=== PATIENT | male | born 1960 | race African-American/Black ===

== ENCOUNTER 2017-03-04 09:39 | Emergency (ER) | payer SELFPAY ==
--- NOTE | 2017-03-04 10:50 | ED Physician Documentation ---
Lower Extremity Problem - HISTORIAN Historian: patient - HPI Stated Complaint: RLE pain Chief Complaint: Lower Extremity Problem Additional Information: exercise painrt leg walks few hundred feet rt leg belowknee pain - rest prod relief-intermittent claudication Location of Injury: R leg Timing: worse (prog worse past 2-3 months--smokes 1/3 ppd), gone now Duration: intermittent episodes Recent Injury: No Severity: mild, moderate Quality: pain, tenderness (from knee down only). denies: swelling Exacerbated By: walking Relieved By: rest Associated Symptoms: denies: shortness of breath - ROS CONST: no problems MS/SKIN/LYMPH: calf pain CVS/RESP: denies: chest pain, shortness of breath NERUO/PSYCH: denies: difficulty walking (just pain) - PAST HX Past History: none PE Risk Factors: none Surgeries/Procedures: none Allergies/Adverse Reactions: Allergies Allergy/AdvReac Type Severity Reaction Status Date / Time No Known Allergies Allergy Verified 03/04/17 09:57 Home Medications: Ambulatory Orders Medication Instructions Recorded Lisinopril [Prinivil] 20 mg PO QD #30 tablet 03/04/17 - SOCIAL HX Smoking History: less than 1 pack/day Alcohol Use: rarely Drug Use: none - FAMILY HX Family History: no significant history - VITAL SIGNS Vital Signs: Vital Signs Temp Pulse Resp BP Pulse Ox 98.2 F 71 16 169/97 97 03/04/17 09:50 03/04/17 09:50 03/04/17 09:50 03/04/17 09:50 03/04/17 09:50 - REVIEWED ASSESSMENTS Nursing Assessment Reviewed: Yes Vitals Reviewed: Yes ED Results Lab/Radiology - Orders Orders: ED Orders Category Date Time Status Chem Sticks Med 03/04/17 10:31 Discontinued 1 each MC NOW ONE Lower Extremity Problem - EXAM General Appearance: mild distress Legs: right: non-tender (below knee only-diminished pulsation) Neuro/Tendon: normal motor functions, normal tendon functions EENT: no signs of dehydration RESPIRATORY: no resp distress, chest non-tender, breath sounds normal CVS: reg rate & rhythm, heart sounds normal JOINT: joints nml VASCULAR: decreased/absent pulse. No: no vascular compromise, pulses full/equal , Nolan's sign NEURO/PSYCH: oriented X3, motor nml, sensation nml, mood/affect nml SKIN: warm/dry, normal color. No: cyanosis, diaphoresis BACK: normal inspection Discharge Clincal Impression: PV-INTERMITTENTCLAUDICATION RT BELOW KNE, HTN (hypertension), NICOTINE ABUSE Referrals: Primary Doctor,No [Primary Care Provider] - 2 Days Comments: WILL GIVE ASA 325 DAILY ANDLISINOPRIS 10 DAILY DC CIGS-EST W/PCP Condition: Fair Disposition: 01 HOME, SELF-CARE Decision to Admit: NO Decision Time: 10:58
[2017-03-04 10:54] VITALS: BP 154/96
== END 2017-03-04 10:52 | disposition home or self-care (01) ==
LOC: ED 09:39
DX: M25.561 Pain in right knee (principal); I10 Essential (primary) hypertension
CPT/HCPCS: 99283

== ENCOUNTER 2018-07-06 11:33 | Emergency (ER) | payer SELFPAY ==
--- NOTE | 2018-07-06 11:37 | ED Physician Documentation ---
General Adult - HISTORIAN Historian: patient - HPI Stated Complaint: paralysis of lower legs starting at 1030 Chief Complaint: General Adult Onset: minutes (50) Timing: still present Severity: mild Further Comments: yes (per family he was found laying on floor by cough (where he sleep) in urine. He was then reported to have told the family he cannot move his legs. He states he can feel his legs but he cannot move the legs. Per friend he did fall on ice two weeks ago on left side but has "been normal since" He did have a CVA two years ago. He denies any other complaints. Admits to alcohol drinking at times he did drink last night but reports only 4 beers. He then did have another episode of urinary incontinence on the way to the ER) Last known Well Code/Unknown Code: Unknown - ROS CONST: no problems CVS/RESP: denies: shortness of breath - PAST HX Past History: hypertension (not currently taking meds ) Surgeries/Procedures: none Immunizations: UTD Allergies/Adverse Reactions: Allergies Allergy/AdvReac Type Severity Reaction Status Date / Time No Known Allergies Allergy Verified 03/04/17 09:57 - SOCIAL HX Smoking History: non-smoker Alcohol Use: occasionally Drug Use: none - FAMILY HX Family History: No - VITAL SIGNS Vital Signs: Vital Signs Temp Pulse Resp BP Pulse Ox 154/96 03/04/17 10:52 - REVIEWED ASSESSMENTS Nursing Assessment Reviewed: Yes Vitals Reviewed: Yes ED Results Lab/Radiology - Radiology Radiology Impressions: Head CT without contrast Clinical history: Sudden lower leg numbness. History of cerebrovascular accident. Technique: CT examination of the brain is performed in contiguous axial slices with sagittal and coronal reconstructions. Findings: The 4th ventricle lies in a normal midline position. The ventricles and sulci are prominent for the patient's age consistent with atrophy. There are extensive small vessel ischemic changes in the periventricular regions. There is no hypodense or hyperdense mass or intracranial hemorrhage. Intracranial atherosclerosis is evident. Visualized paranasal sinuses and the mastoid air cells are clear. Impression: 1. Premature atrophy. 2. Chronic small vessel ischemic changes. 3. Intracranial atherosclerosis. Electronically signed on Jul 06, 2018 12:12:52 PM CDT by: Yuval Saxena CT of the lumbar spine Clinical history: Sudden lower leg numbness. History of cerebrovascular accident. Technique: CT of the lumbar spine is performed in contiguous axial slices with sagittal and coronal reconstructions. Findings: The alignment of the vertebrae is anatomic. There is a fracture of the L1 vertebra involving the anterolateral aspect of the vertebral body on the left extending from the mid vertebral body to the inferior endplate. Posterior elements are intact. There are prominent anterior osteophytes at multiple levels. Sacroiliac joints are symmetric. Degenerative facet changes are seen in the mid and lower lumbar vertebrae. On the axial images at L2-3 there are degenerative facet changes. The neural foramina are patent. At L3-4 there again degenerative facet changes with minimal osteophyte formation. There is slight narrowing the neural foramina but epidural fat still seen within the foramina. The diameter of the canal is within normal limits. At L4-5 there are more severe degenerative facet changes worse on the right with narrowing the right neural foramen. AP diameter of the canal is within normal limits. At L5-S1 there again degenerative facet changes worse on the right with mild diffuse discogenic bulge 2-3 mm. This narrows both neural foramina although worse on the right. Impression: 1. Multilevel spondylosis as described. 2. Fracture of the inferior aspect of the L1 vertebral body on the right side anteriorly. This does not extend into the posterior elements or affect the spinal canal. Electronically signed on Jul 06, 2018 12:18:56 PM CDT by: Yuval Saxena General Adult Physical Exam - PHYSICAL EXAM GENERAL APPEARANCE: no distress EENT: eye inspection normal, no signs of dehydration NECK: normal inspection RESPIRATORY: no resp distress, chest non-tender, breath sounds normal CVS: reg rate & rhythm, heart sounds normal ABDOMEN: soft, normal bowel sounds, no distension BACK: normal inspection SKIN: warm/dry EXTREMITIES: non-tender, other (he states he has feeling with entire exam of legs but he cannot move any part of legs or feet ) NEURO: oriented X3, CN's nml as tested, motor nml, sensation nml, mood/affect nml, cognition normal (he has a mild left lip droop family states this is normal for him ), other (upper body strength normal ) Discharge Clincal Impression: Paralysis Referrals: Primary Doctor,No [Primary Care Provider] - 2 Days Comments: Transfer accepted to [facility] Dr [place]ina in ER Condition: Stable Disposition: 02 XFER SHT-TRM HOSP Decision to Admit: NO Date of Decison to Admit: 07/06/18 Decision Time: 12:35
[2018-07-06 11:56] LABS: MEAN CORPUSCULAR HEMOGLOBIN 31.1 pg (28.0-34.0)
[2018-07-06 11:57] LABS: BASOPHILS % 0.5 (0.0-1.5); EOSINOPHILS % 1.2 % (0.0-6.8); MONOCYTES % 3.7 % (0.0-11.0); NEUTROPHILS # 8.6 # k/uL (1.4-7.7)
[2018-07-06 12:03] LABS: eGFR (Non-African) > 60
--- NOTE | 2018-07-06 12:18 | Diagnostic Imaging Report ---
JONNA CARRIZALES [facility] [address] [facility] [address] [place], [place]. [address] Report Submission Date: Jul 06, 2018 12:12:52 PM CDT Patient Study Name: KAITLIN PETTIT Date: Jul 06, 2018 11:42:40 AM CDT Modality Type: CT Gender: M Description: CT BRAIN W/O CONTRAST : 58 Institution: [facility] Physician: JONNA CARRIZALES Head CT without contrast Clinical history: Sudden lower leg numbness. History of cerebrovascular accident. Technique: CT examination of the brain is performed in contiguous axial slices with sagittal and coronal reconstructions. Findings: The 4th ventricle lies in a normal midline position. The ventricles and sulci are prominent for the patient's age consistent with atrophy. There are extensive small vessel ischemic changes in the periventricular regions. There is no hypodense or hyperdense mass or intracranial hemorrhage. Intracranial atherosclerosis is evident. Visualized paranasal sinuses and the mastoid air cells are clear. Impression: 1. Premature atrophy. 2. Chronic small vessel ischemic changes. 3. Intracranial atherosclerosis. Electronically signed on Jul 06, 2018 12:12:52 PM CDT by: Yuval ORTIZ
--- NOTE | 2018-07-06 12:22 | Diagnostic Imaging Report ---
JONNA CARRIZALES [facility] [address] [facility] [address] [place], [place]. [address] Report Submission Date: Jul 06, 2018 12:18:56 PM CDT Patient Study Name: KAITLIN PETTIT Date: Jul 06, 2018 11:44:56 AM CDT Modality Type: CT Gender: M Description: CT L-SPINE W/O CONTRAS : 58 Institution: [facility] Physician: JONNA CARRIZALES CT of the lumbar spine Clinical history: Sudden lower leg numbness. History of cerebrovascular accident. Technique: CT of the lumbar spine is performed in contiguous axial slices with sagittal and coronal reconstructions. Findings: The alignment of the vertebrae is anatomic. There is a fracture of the L1 vertebra involving the anterolateral aspect of the vertebral body on the left extending from the mid vertebral body to the inferior endplate. Posterior elements are intact. There are prominent anterior osteophytes at multiple levels. Sacroiliac joints are symmetric. Degenerative facet changes are seen in the mid and lower lumbar vertebrae. On the axial images at L2-3 there are degenerative facet changes. The neural foramina are patent. At L3-4 there again degenerative facet changes with minimal osteophyte formation. There is slight narrowing the neural foramina but epidural fat still seen within the foramina. The diameter of the canal is within normal limits. At L4-5 there are more severe degenerative facet changes worse on the right with narrowing the right neural foramen. AP diameter of the canal is within normal limits. At L5-S1 there again degenerative facet changes worse on the right with mild diffuse discogenic bulge 2-3 mm. This narrows both neural foramina although worse on the right. Impression: 1. Multilevel spondylosis as described. 2. Fracture of the inferior aspect of the L1 vertebral body on the right side anteriorly. This does not extend into the posterior elements or affect the spinal canal. Electronically signed on Jul 06, 2018 12:18:56 PM CDT by: Yuval ORTIZ
[2018-07-06 13:12] VITALS: BP 155/92
== END 2018-07-06 13:00 | disposition short-term general hospital (02) ==
LOC: ED 11:33
DX: G82.20 Paraplegia, unspecified (principal); S32.018A Other fracture of first lumbar vertebra, initial encounter for closed fracture; W00.9XXA Unspecified fall due to ice and snow, initial encounter; Y93.9 Activity, unspecified; Y92.9 Unspecified place or not applicable
CPT/HCPCS: 36415; 70450; 72131; 80053; 80320; 85025; 85610; 99285; G0480; S1016

== ENCOUNTER 2018-07-17 17:59 | Emergency (ER) | payer SELFPAY ==
--- NOTE | 2018-07-17 18:28 | ED Physician Documentation ---
General Adult - HISTORIAN Historian: patient, friend - HPI Stated Complaint: catheter removal Chief Complaint: General Adult Further Comments: yes (58 year old male patient presents requesting boss catheter be removed. Catheter was place at [facility] last week. called [facility] today and was told to have the boss removed at his doctor's office. Patient was unable to be seen in clinic and came to ER. Patient and do not know the name of the doctor at [facility].) - ROS CONST: recent illness, weakness EYES/ENT: none CVS/RESP: none GI/: none MS/SKIN/LYMPH: none NEURO/PSYCH: denies: headache, fainting, dizziness, tingling, numbness, difficulty walking, difficulty with speech, anxiety, depression, other - PAST HX Past History: other (urinary retention related to recent fall. Turtle brace - L1 vertebral body fracture) Allergies/Adverse Reactions: Allergies Allergy/AdvReac Type Severity Reaction Status Date / Time No Known Allergies Allergy Verified 07/17/18 18:24 Home Medications: Ambulatory Orders Medication Instructions Recorded NK 07/17/18 - SOCIAL HX Smoking History: non-smoker - FAMILY HX Family History: No - VITAL SIGNS Vital Signs: Vital Signs Temp Pulse Resp BP Pulse Ox 97.7 F 90 16 143/102 98 07/17/18 17:59 07/17/18 17:59 07/17/18 17:59 07/17/18 17:59 07/17/18 17:59 - REVIEWED ASSESSMENTS Nursing Assessment Reviewed: Yes Vitals Reviewed: Yes Progress - Progress Progress: Boss removed per patient's request. ED Results Lab/Radiology - Orders Orders: ED Orders Category Date Time Status Further Nursing Orders 1T Care 07/17/18 18:21 Ordered General Adult Physical Exam - PHYSICAL EXAM GENERAL APPEARANCE: [id number] N EENT: eye inspection normal, PROSPER RESPIRATORY: no resp distress CVS: reg rate & rhythm ABDOMEN: other (obss catheter with dark yellow urine) SKIN: warm/dry, normal color NEURO: oriented X3 Discharge Clincal Impression: Encounter for Boss catheter removal Additional Instructions: If you have not voided within 8 hours, you will have to return to have the catheter placed. Condition: Stable Disposition: 01 HOME, SELF-CARE Decision to Admit: NO Decision Time: 18:28
[2018-07-17 18:42] VITALS: BP 145/100
== END 2018-07-17 18:40 | disposition home or self-care (01) ==
LOC: ED 17:59
DX: Z46.6 Encounter for fitting and adjustment of urinary device (principal)
CPT/HCPCS: 99282

== ENCOUNTER 2018-07-30 09:29 | Emergency (ER) | payer SELFPAY ==
--- NOTE | 2018-07-30 10:17 | ED Physician Documentation ---
Male Genitourinary Problems - HISTORIAN Historian: patient - HPI Stated Complaint: catheter check Chief Complaint: Male Urogenital Problems (Catheter leaking) Additional Information: Patient is a 58-year-old male that presents to the ER for catheter check- he states that it has been leaking- catheter bag is duck taped. He was last seen in this ER on 07/18/18 after having catheter removed the day before and not being able to void. Catheter was replaced in ER that day. Today- catheter bag is leaking and appears to be leaking from the insertion site. He states that he has a follow up appointment in 2 days (Saturday) with Urologist at the [facility]. He denies any F/C/N/V/D. Onset: days ago Duration: continues in ED Context: denies: drug use, lifting Severity: mild Further Comments: yes (catheter leaking) - Associated Symptoms Problems Urinating: blood in urine, other (dark concentrated) Last Urinated: 07/30/18 (Has catheter) Inguinal Mass: No Flank Pain: none Abdominal Pain: none - Sexual History Sexual History: non-contributory - ROS CONST: none GI/: problems urinating (has catheter due to retention). denies: nausea, vomiting MS/SKIN/LYMPH: none CVS/RESP: none EYES/ENT: none NEURO/PSYCH: denies: dizziness - PAST HX Past History: bladder infection, other (pt denies any past medical history) Surgeries/Procedures: other (lumbar in June) Immunizations: UTD Allergies/Adverse Reactions: Allergies Allergy/AdvReac Type Severity Reaction Status Date / Time No Known Allergies Allergy Verified 07/30/18 10:05 Home Medications: Ambulatory Orders Medication Instructions Recorded Ciprofloxacin [Cipro] 500 mg PO BID #20 tablet 07/30/18 - SOCIAL HX Smoking History: non-smoker Alcohol Use: occasionally Drug Use: marijuana - FAMILY HX Family History: none - VITAL SIGNS Vital Signs: Vital Signs Temp Pulse Resp BP Pulse Ox 97.4 F L 109 H 16 119/82 97 07/30/18 09:40 07/30/18 11:11 07/30/18 11:11 07/30/18 11:11 07/30/18 11:11 - REVIEWED ASSESSMENTS Nursing Assessment Reviewed: Yes Vitals Reviewed: Yes Progress - Progress Progress: 10:30 patient feels much better after new catheter placed- RN states patient had > 500cc out ED Results Lab/Radiology - Orders Orders: ED Orders Category Date Time Status Remove urinary catheter 1T Care 07/30/18 10:06 Active Urinary catheterization 1T Care 07/30/18 10:06 Active URINALYSIS Routine Lab 07/30/18 10:20 Ordered URINE CULTURE Stat Lab 07/30/18 10:26 Ordered Ciprofloxacin [Cipro] Med 07/30/18 10:51 Discontinued 500 mg PO .STK-MED ONE Ciprofloxacin [Cipro] Med 07/30/18 11:00 Discontinued 500 mg PO DAILY Male Genitourinary Problems - EXAM General Appearance: no acute distress, alert Abdomen: tenderness, distended bladder EENT: ENT inspection normal, pharynx normal, PROSPER Neck: nml inspection Respiratory: breath sounds normal CVS: heart sounds normal, equal pulses Extremities: non-tender, no pedal edema, normal capillary refill Neuro/Psych: oriented X3, motor nml, sensation nml, mood/affect nml, cognition normal Skin: warm/dry, normal color Discharge Clincal Impression: Urinary retention with incomplete bladder emptying, Encounter for Peña catheter replacement, Urinary tract infection associated with catheterization of urinary tract Prescriptions: Ciprofloxacin [Cipro] 500 mg PO BID #20 tablet Referrals: Primary Doctor,No [Primary Care Provider] - 2 Days Additional Instructions: Keep Urology appointment on the 5th New catheter placed Good cleaning of catheter Take Cipro 500 mg by mouth twice a day until gone Follow up with PCP next week Condition: Good Disposition: 01 HOME, SELF-CARE Decision to Admit: NO Decision Time: 11:10
[2018-07-30] MEDS ORDERED: CIPROFLOXACIN HCL 500 MG TABLET PO ONE (10:51)
[2018-07-30] MEDS: CIPROFLOXACIN HCL 500 MG TABLET PO SCH (10:55)
[2018-07-30 11:12] VITALS: BP 119/82
[2018-07-30 12:26] LABS: APPEARANCE,URINE CLOUDY (CLEAR); COLOR,URINE BROWN (YELLOW); OCCULT BLOOD,URINE 1+ (NEGATIVE)
== END 2018-07-30 11:08 | disposition home or self-care (01) ==
LOC: ED 09:29
DX: Z46.6 Encounter for fitting and adjustment of urinary device (principal); T83.038A Leakage of other urinary catheter, initial encounter; T83.511A Infection and inflammatory reaction due to indwelling urethral catheter, initial encounter; R33.9 Retention of urine, unspecified
CPT/HCPCS: 51702; 81002; 87086; 99283

== ENCOUNTER 2018-08-02 10:15 | Emergency (ER) | payer SELFPAY ==
--- NOTE | 2018-08-02 10:29 | ED Physician Documentation ---
Male Genitourinary Problems - HISTORIAN Historian: patient - HPI Stated Complaint: uable to urinate Chief Complaint: Male Urogenital Problems Additional Information: Patient presents to ED with complaints of inability to urinate after his boss catheter was removed yesterday by Urology. Patient was diagnosed with guillian barre and is under the care of urology/neurology. He was started on antibiotics yesterday for urinary tract infection. Onset: hours (12) Duration: continues in ED Context: other (boss removed yesterday) Severity: severe - Associated Symptoms Problems Urinating: other (unable to urinate) Testicular Pain: none Testicular Swelling: none Penile Pain: No Penile Swelling: No Inguinal Mass: No Flank Pain: none Abdominal Pain: none - Sexual History Sexual History: non-contributory - ROS CONST: none GI/: denies: nausea, vomiting MS/SKIN/LYMPH: none CVS/RESP: none EYES/ENT: none NEURO/PSYCH: denies: fainting - PAST HX Past History: other Cardiac Disease: none Surgeries/Procedures: none Allergies/Adverse Reactions: Allergies Allergy/AdvReac Type Severity Reaction Status Date / Time No Known Allergies Allergy Verified 07/30/18 10:05 Home Medications: Ambulatory Orders Medication Instructions Recorded Ciprofloxacin HCl [Cipro] 500 mg PO BID #20 tablet 07/30/18 - SOCIAL HX Smoking History: non-smoker Alcohol Use: none Drug Use: none - FAMILY HX Family History: none - VITAL SIGNS Vital Signs: Vital Signs Temp Pulse Resp BP Pulse Ox 119/82 07/30/18 11:11 - REVIEWED ASSESSMENTS Nursing Assessment Reviewed: Yes Vitals Reviewed: Yes ED Results Lab/Radiology - Orders Orders: ED Orders Category Date Time Status Boss [Urinary catheterization] 1T Care 08/02/18 10:20 Active LIDOCAINE Urojet [Xylocaine UROJET] Med 08/02/18 10:32 Discontinued 5 ml .ROUTE .STK-MED ONE LIDOCAINE Urojet [Xylocaine UROJET] Med 08/02/18 10:32 Discontinued 5 ml UR NOW ONE Male Genitourinary Problems - EXAM General Appearance: no acute distress Abdomen: non-tender EENT: PROSPER Respiratory: no resp distress, chest non-tender, breath sounds normal CVS: reg rate & rhythm, heart sounds normal Back: non-tender. No: CVA tenderness Extremities: normal range of motion Neuro/Psych: oriented X3 Skin: warm/dry Discharge Clincal Impression: Urinary retention with incomplete bladder emptying Urinary tract infection associated with catheterization of urinary tract Qualifiers: Indwelling urinary catheter type: indwelling urethral catheter Encounter type: initial encounter Qualified Code(s): T83.511A - Infection and inflammatory reaction due to indwelling urethral catheter, initial encounter; N39.0 - Urinary tract infection, site not specified Referrals: Primary Doctor,No [Primary Care Provider] - 2 Days Additional Instructions: 1. Continue and complete antibiotics as previously prescribed 2. Follow up with Urology next week as already scheduled 3. Return to ER for new or worsening symptoms. Condition: Stable Disposition: 01 HOME, SELF-CARE Decision to Admit: NO Date of Decison to Admit: 08/02/18 Decision Time: 11:24
[2018-08-02] MEDS: LIDOCAINE Urojet 5 ML JEL ONE (10:32)
[2018-08-02 11:45] VITALS: BP 122/74
[2018-08-02] MEDS: LIDOCAINE Urojet 5 ML JEL UR ONE (11:47)
[2018-08-02 17:16] LABS: APPEARANCE,URINE CLEAR (CLEAR); COLOR,URINE AMBER (YELLOW)
[2018-08-02 17:17] LABS: OCCULT BLOOD,URINE 1+ (NEGATIVE); PH URINE 5.5 (5.0 - 8.0)
== END 2018-08-02 11:34 | disposition home or self-care (01) ==
LOC: ED 10:15
DX: N39.0 Urinary tract infection, site not specified (principal); T83.511A Infection and inflammatory reaction due to indwelling urethral catheter, initial encounter; R33.9 Retention of urine, unspecified
CPT/HCPCS: 51702; 81002; 87086; 99282; 99283

== ENCOUNTER 2018-10-29 15:30 | Emergency (ER) | payer OTHER ==
--- NOTE | 2018-10-29 15:54 | ED Physician Documentation ---
General Adult - HISTORIAN Historian: patient - HPI Stated Complaint: boss cath is leaking Chief Complaint: General Adult Onset: minutes (45) Timing: still present Further Comments: yes (he has an indwelling boss and the clamp broke to the bag he was told by his "nurse" to come to the ER) - ROS CONST: no problems MS/SKIN/LYMPH: none - PAST HX Past History: hypertension Immunizations: UTD Allergies/Adverse Reactions: Allergies Allergy/AdvReac Type Severity Reaction Status Date / Time No Known Allergies Allergy Verified 08/22/18 09:14 Home Medications: Ambulatory Orders Medication Instructions Recorded Ciprofloxacin HCl [Cipro] 500 mg PO BID #14 tablet 08/22/18 - SOCIAL HX Smoking History: non-smoker Alcohol Use: occasionally Drug Use: none - FAMILY HX Family History: No - VITAL SIGNS Vital Signs: Vital Signs Temp Pulse Resp BP Pulse Ox 133/85 08/22/18 09:50 - REVIEWED ASSESSMENTS Nursing Assessment Reviewed: Yes Vitals Reviewed: Yes ED Results Lab/Radiology - Orders Orders: ED Orders Category Date Time Status Further Nursing Orders 1T Care 10/29/18 15:53 Ordered Urinary catheterization 1T Care 10/29/18 15:53 Ordered General Adult Physical Exam - PHYSICAL EXAM GENERAL APPEARANCE: no distress EENT: eye inspection normal, no signs of dehydration NECK: normal inspection RESPIRATORY: no resp distress, chest non-tender, breath sounds normal CVS: reg rate & rhythm, heart sounds normal ABDOMEN: soft, normal bowel sounds, no distension BACK: normal inspection, no CVA tenderness SKIN: warm/dry EXTREMITIES: non-tender, normal range of motion, no evidence of injury, no edema NEURO: oriented X3 Discharge Clincal Impression: Encounter for Boss catheter replacement Referrals: Primary Doctor,No [Primary Care Provider] - 2 Days Condition: Stable Disposition: HOME, SELF-CARE Decision to Admit: NO Date of Decison to Admit: 10/29/18 Decision Time: 15:57
[2018-10-29 16:00] VITALS: BP 146/95
== END 2018-10-29 15:55 | disposition home or self-care (01) ==
LOC: ED 15:30
DX: Z46.6 Encounter for fitting and adjustment of urinary device (principal); T83.038A Leakage of other urinary catheter, initial encounter
CPT/HCPCS: 51702; 99281

== ENCOUNTER 2019-01-12 10:55 | Outpatient (CLI) | payer OTHER ==
[2019-01-12 11:24] LABS: BASOPHILS % 0.4 % (0.0-1.5); NEUTROPHILS # 4.5 # k/uL (1.4-7.7)
[2019-01-12 11:42] LABS: eGFR (Non-African) > 60
== END 2019-01-12 10:57 ==
LOC: LAB 10:55
PROVIDERS: ATTEND Family Medicine
DX: Z51.81 Encounter for therapeutic drug level monitoring (principal); Z79.899 Other long term (current) drug therapy
CPT/HCPCS: 36415; 80053; 85025

== ENCOUNTER 2019-05-04 15:40 | Emergency (ER) | payer OTHER ==
[2019-05-04] MEDS: 0.9 % SODIUM CHLORIDE 1,000 ML IV ONE ×2 (16:36)
[2019-05-04 16:51] LABS: eGFR (Non-African) > 60
[2019-05-04 16:54] LABS: BASOPHILS % 0.5 % (0.0-1.5); NEUTROPHILS # 4.5 # k/uL (1.4-7.7)
--- NOTE | 2019-05-04 16:55 | ED Physician Documentation ---
General Adult - HISTORIAN Historian: patient, spouse - HPI Stated Complaint: Weakness Chief Complaint: General Adult Further Comments: yes (58 year old male patient brought in by for evaluation of weakness, poor po intake, more difficulty moving left leg today. Patient with history of CVA and L hemiplegia with slurred speech. Denies CP, SOB, N/V.) - ROS CONST: weakness. denies: fever, weight loss, chills EYES/ENT: none CVS/RESP: none GI/: none MS/SKIN/LYMPH: none NEURO/PSYCH: denies: headache, fainting, dizziness, tingling, numbness, difficulty walking, difficulty with speech, anxiety, depression, other - PAST HX Past History: hypertension Other History: CVA, other (CVA ) Allergies/Adverse Reactions: Allergies Allergy/AdvReac Type Severity Reaction Status Date / Time No Known Allergies Allergy Verified 05/04/19 16:03 Home Medications: Ambulatory Orders Medication Instructions Recorded Aspirin [Jarrod] 1 tab PO DAILY 05/04/19 Atorvastatin Calcium [Lipitor] 1 tab PO DAILY 05/04/19 Tamsulosin HCl [Flomax] 1 tab PO DAILY 05/04/19 - SOCIAL HX Smoking History: cigarettes - FAMILY HX Family History: No - VITAL SIGNS Vital Signs: Vital Signs Temp Pulse Resp BP Pulse Ox 98.5 F 120 H 21 141/97 97 05/04/19 15:45 05/04/19 15:45 05/04/19 15:45 05/04/19 15:45 05/04/19 15:45 - REVIEWED ASSESSMENTS Nursing Assessment Reviewed: Yes Vitals Reviewed: Yes ED Results Lab/Radiology - Lab Results Lab Results: Lab Results 05/04/19 05/04/19 16:20 16:20 PT 10.0 Seconds Seconds (8.8-11.9) INR 0.96 (0.80-1.10) Sodium 143 mmol/L mmol/L (137-145) Potassium 3.6 mmol/L mmol/L (3.5-5.1) Chloride 106 mmol/L mmol/L (98-107) Carbon Dioxide 26 mmol/L mmol/L (22-30) Anion Gap 14.6 BUN 14 mg/dL mg/dL (9-20) Creatinine 0.81 mg/dL mg/dL (0.66-1.25) Estimated Creat Clear 81 Est GFR ( Amer) > 60 (60 - ) Est GFR (Non-Af Amer) > 60 (60 - ) Glucose 105 mg/dL mg/dL (74-106) Calcium 10.1 mg/dL mg/dL (8.4-10.2) Total Bilirubin 0.9 mg/dL mg/dL (0.2-1.3) AST 33 U/L U/L (15-46) ALT 17 U/L U/L (4-50) Alkaline Phosphatase 103 U/L U/L (38-126) Total Protein 8.2 g/dL g/dL (6.3-8.2) Albumin 4.4 g/dL g/dL (3.5-5.0) - Orders Orders: ED Orders Category Date Time Status Place IV Lock 1T Care 05/04/19 16:09 Active CBC/PLATELET/DIFF Stat Lab 05/04/19 16:20 Received CMP Stat Lab 05/04/19 16:20 Completed PT-INR Stat Lab 05/04/19 16:20 Completed UA W/MICRO IF INDICATED Stat Lab 05/04/19 16:09 Ordered 0.9 % Sodium Chloride [Normal Saline] 1,000 ml Med 05/04/19 16:27 Discontinued IV .STK-MED 0.9 % Sodium Chloride [Normal Saline] 1,000 ml Med 05/04/19 16:30 Discontinued IV NOW EKG WITH COMPARISON Stat Ther 05/04/19 16:09 Completed General Adult Physical Exam - PHYSICAL EXAM GENERAL APPEARANCE: [id number] N EENT: eye inspection normal, PROSPER RESPIRATORY: no resp distress, chest non-tender, breath sounds normal CVS: reg rate & rhythm, heart sounds normal, equal pulses, no murmur, no gallop, PMI nml, no JVD, no friction rub, 24 ABDOMEN: soft, no organomegaly, normal bowel sounds, no abdominal bruit, no distension SKIN: normal color, warm/dry, NR, INT, PAL, DR EXTREMITIES: other (L hemiplegia; left arm contractures; can lift left leg off bed) NEURO: oriented X3, motor nml, sensation nml, mood/affect nml Discharge Clincal Impression: History of CVA (cerebrovascular accident), Malaise and fatigue Referrals: Pilo Singh MD [Primary Care Provider] - 2 Days Additional Instructions: Continue your current medications See your primary care providers if your symptoms become worse. Condition: Stable Disposition: 01 HOME, SELF-CARE Decision to Admit: NO Decision Time: 17:36
[2019-05-04 18:00] VITALS: BP 138/87
== END 2019-05-04 17:58 | disposition home or self-care (01) ==
LOC: ED 15:40
DX: R53.83 Other fatigue (principal); R53.81 Other malaise; Z86.73 Personal history of transient ischemic attack (TIA), and cerebral infarction without residual deficits
CPT/HCPCS: 80053; 85025; 85610; 93005; 99282; 99283; J7030; S1016

== ENCOUNTER 2019-05-08 11:43 | Emergency (ER) | payer OTHER ==
--- NOTE | 2019-05-08 14:03 | Diagnostic Imaging Report ---
PATIENT MR#: [id number] PATIENT PATIENT NAME: KAITLIN PETTIT DATE OF : 1960 REFERRING PHYSICIAN: Steph Daniels EXAM DATE: 05/08/2019 ACCESSION NUMBER: [id number] EXAM DESCRIPTION: L SPINE 2 OR 3 VIEWS Lumbar spine History: Status post fall AP and lateral projections of the lumbar spine demonstrate extensive, multilevel anterior marginal os teophytosis and multilevel facet arthropathy. Vertebral body height and intervertebral disc space height is maintain ed. No acute osseous abnormalities are noted. Impression: Degenerative findings as described. No acute osseous abnormality. Read by: Dr. Joycelyn Hernandez Transcribed by: Transcribed Date: Electronically signed by: Dr. Joycelyn Hernandez Date signed: 05/08/2019 2:02:39 PM
--- NOTE | 2019-05-08 14:04 | Diagnostic Imaging Report ---
PATIENT MR#: [id number] PATIENT PATIENT NAME: KAITLIN PETTIT DATE OF : 1960 REFERRING PHYSICIAN: Steph Daniels EXAM DATE: 05/08/2019 ACCESSION NUMBER: [id number] EXAM DESCRIPTION: PELVIS AP 1 OR 2 VIEWS AP pelvis History: Status post fall AP view of the pelvis dated May 08, 2019 demonstrates no acute osseous abnormality. SI joints ar e patent. Mild osteoarthritic findings of the bilateral hips are noted. Impression: Mild osteoarthritic findings of the bilateral hips. No acute osseous abnormality. Read by: Dr. Joycelyn Hernandez Transcribed by: Transcribed Date: Electronically signed by: Dr. Joycelyn Hernandez Date signed: 05/08/2019 2:03:39 PM
--- NOTE | 2019-05-08 14:05 | Diagnostic Imaging Report ---
PATIENT MR#: [id number] PATIENT PATIENT NAME: KAITLIN PETTIT DATE OF : 1960 REFERRING PHYSICIAN: Steph Daniels EXAM DATE: 05/08/2019 ACCESSION NUMBER: [id number] EXAM DESCRIPTION: ELBOW 2 VIEWS Left elbow History: Status post fall A nonconventional AP view and a lateral view of the left elbow demonstrate a large olecranon spur. N o acute fracture site is noted. Impression: The AP radiograph is limited and nonstandard. If there is strong clinical concern, this radiograph s hould be repeated. No acute fracture site is seen. Large olecranon spur. Read by: Dr. Joycelyn Hernandez Transcribed by: Transcribed Date: Electronically signed by: Dr. Joycelyn Hernandez Date signed: 05/08/2019 2:04:39 PM
--- NOTE | 2019-05-08 14:06 | Diagnostic Imaging Report ---
PATIENT MR#: [id number] PATIENT PATIENT NAME: KAITLIN PETTIT DATE OF : 1960 REFERRING PHYSICIAN: Steph Daniels EXAM DATE: 05/08/2019 ACCESSION NUMBER: [id number] EXAM DESCRIPTION: FOREARM 2 VIEWS Left forearm History: Status post fall AP and lateral projections of the left forearm were obtained which demonstrate no evidence for acute fracture or dislocation. Mineralization is normal. Impression: No evidence for acute fracture or dislocation. Read by: Dr. Joycelyn Hernandez Transcribed by: Transcribed Date: Electronically signed by: Dr. Joycelyn Hernandez Date signed: 05/08/2019 2:05:39 PM
--- NOTE | 2019-05-08 14:07 | Diagnostic Imaging Report ---
PATIENT MR#: [id number] PATIENT PATIENT NAME: KAITLIN PETTIT DATE OF : 1960 REFERRING PHYSICIAN: Steph Daniels EXAM DATE: 05/08/2019 ACCESSION NUMBER: [id number] EXAM DESCRIPTION: SHOULDER 2 VIEWS OR MORE Left shoulder History: Status post fall Three views left shoulder demonstrate mild degenerative narrowing of the glenohumeral joint with mild spurring along the inferior glenoid. Degenerative and mild hypertrophic findings of the AC joint are present. There is no evidence for acute fracture or dislocation. Impression: Degenerative findings as described. No acute osseous abnormality. Read by: Dr. Joycelyn Hernandez Transcribed by: Transcribed Date: Electronically signed by: Dr. Joycelyn Hernandez Date signed: 05/08/2019 2:06:39 PM
--- NOTE | 2019-05-08 14:08 | Diagnostic Imaging Report ---
PATIENT MR#: [id number] PATIENT PATIENT NAME: KAITLIN PETTIT DATE OF : 1960 REFERRING PHYSICIAN: Steph Daniels EXAM DATE: 05/08/2019 ACCESSION NUMBER: [id number] EXAM DESCRIPTION: LT FEMUR 2VIEWS Left femur History: Status post fall Five views of the left femur demonstrate no evidence for acute fracture or dislocation. Mineralizati on is normal. Impression: No osseous abnormality. Read by: Dr. Joycelyn Hernandez Transcribed by: Transcribed Date: Electronically signed by: Dr. Joycelyn Hernandez Date signed: 05/08/2019 2:07:39 PM
--- NOTE | 2019-05-08 14:18 | ED Physician Documentation ---
Fall - HISTORIAN Historian: patient - HPI Stated Complaint: left leg pain and arm pain Chief Complaint: Fall Additional Information: Patient presents to ED with left arm and left leg pain after falling on Saturday (5 days ago). Onset: days ago (5) Where: home Context: tripped r: moderate Associated Symptoms:: no loss of consciousness Location of Pain/Injury: L shoulder, upper extremity (left), lower extremity (left) Injury to Right Extremity: none Injury to Left Extremity: shoulder, arm, leg - ROS CONST: no problems NEURO: denies: dizziness MS/SKIN/LYMPH: denies: weakness EYES/ENT: none CVS/RESP: none GI/: denies: nausea, vomiting - PAST HX Past History: none Allergies/Adverse Reactions: Allergies Allergy/AdvReac Type Severity Reaction Status Date / Time No Known Allergies Allergy Verified 05/08/19 11:52 Home Medications: Ambulatory Orders Medication Instructions Recorded Aspirin [Jarrod] 1 tab PO DAILY 05/04/19 Atorvastatin Calcium [Lipitor] 1 tab PO DAILY 05/04/19 Tamsulosin HCl [Flomax] 1 tab PO DAILY 05/04/19 - SOCIAL HX Smoking History: non-smoker Alcohol Use: none Drug Use: none - FAMILY HX Family History: none - VITAL SIGNS Vital Signs: Vital Signs Temp Pulse Resp BP Pulse Ox 98.0 F 110 H 19 171/109 95 05/08/19 11:54 05/08/19 11:54 05/08/19 11:54 05/08/19 11:54 05/08/19 11:54 - REVIEWED ASSESSMENTS Nursing Assessment Reviewed: Yes Vitals Reviewed: Yes ED Results Lab/Radiology - Radiology Radiology Impressions: Report Submission Date: May 08, 2019 2:02:02 PM MH TEACHER Patient Study Name: KAITLIN PETTIT Date: May 08, 2019 12:47:31 PM MH TEACHER Modality Type: DX Gender: M Description: SHOULDER 2 VIEWS OR MORE : 58 Institution: [facility] Physician: ELHAM JAMES Left shoulder History: Status post fall Three views left shoulder demonstrate mild degenerative narrowing of the glenohumeral joint with mild spurring along the inferior glenoid. Degenerative and mild hypertrophic findings of the AC joint are present. There is no evidence for acute fracture or dislocation. Impression: Degenerative findings as described. No acute osseous abnormality. Electronically signed on May 08, 2019 2:02:02 PM MH TEACHER by: Joycelyn Hernandez Report Submission Date: May 08, 2019 1:57:34 PM MH TEACHER Patient Study Name: KAITLIN PETTIT Date: May 08, 2019 12:47:31 PM MH TEACHER Modality Type: DX Gender: M Description: L SPINE 2 OR 3 VIEWS : 58 Institution: [facility] Physician: ELHAM JAMES Lumbar spine History: Status post fall AP and lateral projections of the lumbar spine demonstrate extensive, multilevel anterior marginal osteophytosis and multilevel facet arthropathy. Vertebral body height and intervertebral disc space height is maintained. No acute osseous abnormalities are noted. Impression: Degenerative findings as described. No acute osseous abnormality. Electronically signed on May 08, 2019 1:57:34 PM MH TEACHER by: Joycelyn Hernandez Report Submission Date: May 08, 2019 1:57:34 PM MH TEACHER Patient Study Name: KAITLIN PETTIT Date: May 08, 2019 12:47:31 PM MH TEACHER Modality Type: DX Gender: M Description: L SPINE 2 OR 3 VIEWS : 58 Institution: [facility] Physician: ELHAM JAMES Lumbar spine History: Status post fall AP and lateral projections of the lumbar spine demonstrate extensive, multilevel anterior marginal osteophytosis and multilevel facet arthropathy. Vertebral body height and intervertebral disc space height is maintained. No acute osseous abnormalities are noted. Impression: Degenerative findings as described. No acute osseous abnormality. Electronically signed on May 08, 2019 1:57:34 PM MH TEACHER by: Joycelyn Hernandez Report Submission Date: May 08, 2019 2:01:02 PM MH TEACHER Patient Study Name: KAITLIN PETTIT Date: May 08, 2019 12:47:31 PM MH TEACHER Modality Type: DX Gender: M Description: FOREARM 2 VIEWS : 58 Institution: [facility] Physician: ELHAM JAMES Left forearm History: Status post fall AP and lateral projections of the left forearm were obtained which demonstrate no evidence for acute fracture or dislocation. Mineralization is normal. Impression: No evidence for acute fracture or dislocation. Electronically signed on May 08, 2019 2:01:02 PM MH TEACHER by: Joycelyn Hernandez Report Submission Date: May 08, 2019 2:00:08 PM MH TEACHER Patient Study Name: KAITLIN PETTIT Date: May 08, 2019 12:47:31 PM MH TEACHER Modality Type: DX Gender: M Description: ELBOW 2 VIEWS : 58 Institution: [facility] Physician: ELHAM JAMES Left elbow History: Status post fall A nonconventional AP view and a lateral view of the left elbow demonstrate a large olecranon spur. No acute fracture site is noted. Impression: The AP radiograph is limited and nonstandard. If there is strong clinical concern, this radiograph should be repeated. No acute fracture site is seen. Large olecranon spur. Electronically signed on May 08, 2019 2:00:08 PM MH TEACHER by: Joycelyn Hernandez Report Submission Date: May 08, 2019 2:00:08 PM MH TEACHER Patient Study Name: KAITLIN PETTIT Date: May 08, 2019 12:47:31 PM MH TEACHER Modality Type: DX Gender: M Description: ELBOW 2 VIEWS : 58 Institution: [facility] Physician: ELHAM JAMES Left elbow History: Status post fall A nonconventional AP view and a lateral view of the left elbow demonstrate a large olecranon spur. No acute fracture site is noted. Impression: The AP radiograph is limited and nonstandard. If there is strong clinical concern, this radiograph should be repeated. No acute fracture site is seen. Large olecranon spur. Electronically signed on May 08, 2019 2:00:08 PM MH TEACHER by: Joycelyn Hernandez - Orders Orders: ED Orders Category Date Time Status ELBOW 2 VIEWS [RAD] Stat Exams 05/08/19 Completed FOREARM 2 VIEWS [RAD] Stat Exams 05/08/19 Completed L SPINE 2 OR 3 VIEWS [RAD] Stat Exams 05/08/19 Completed LT FEMUR 2VIEWS [RAD] Stat Exams 05/08/19 Completed PELVIS AP 1 OR 2 VIEWS [RAD] Stat Exams 05/08/19 Completed SHOULDER 2 VIEWS OR MORE [RAD] Stat Exams 05/08/19 Completed Fall Physical Exam - Physical Exam General Appearance: no acute distress, alert Head: non-tender, no swelling Neck: non-tender, painless ROM Eye: PROSPER, EOMI ENT: nml external inspection Resp/CVS: chest non-tender, breath sounds nml Abdomen: soft, normal bowel sounds, non-tender Neuro: oriented x3, motor deficit (left sided from previous CVA), slurred speech (from prior CVA) Back: normal inspection Extremities: atraumatic, pelvis stable Joint: limited ROM - Skipwith Coma Score Eyes Open: Spontaneous Speech: Oriented Motor: Obeys Commands Discharge Clincal Impression: Fall Qualifiers: Encounter type: initial encounter Qualified Code(s): W19.XXXA - Unspecified fall, initial encounter Referrals: Pilo Singh MD [Primary Care Provider] - 2 Days Additional Instructions: 1. Tylenol 650mg every 4 hours as needed for pain 2. Apply biofreeze, icy hot, bengay, aspercream or lidocaine patches as needed for comfort 3. Apply ice and/or heat to affected areas as needed for comfort 4. Follow up with Dr. Singh on SaturdayMay 11 at 1:00 pm 5. Return to ER for new or worsening symptoms Condition: Stable Disposition: 01 HOME, SELF-CARE Decision to Admit: NO Date of Decison to Admit: 05/08/19 Decision Time: 14:21
[2019-05-08 14:30] VITALS: BP 138/87
== END 2019-05-08 14:29 | disposition home or self-care (01) ==
LOC: ED 11:43
DX: M79.605 Pain in left leg (principal); M25.512 Pain in left shoulder; W19.XXXA Unspecified fall, initial encounter
CPT/HCPCS: 73552; 99282